=== PATIENT | male | born 1945 | race Caucasian/White ===

== ENCOUNTER 2017-11-10 20:45 | Emergency (ER) | payer MEDICARE, BC ==
[~2017-11-10] VITALS: Ht 172.7 cm; Wt 75.8 kg
[2017-11-10] MEDS ORDERED: LIDOcaine 1.5% w/epinephrine 1:200,000 5ml ampul IJ ONE (21:45)
[2017-11-10 22:27] VITALS: BP 128/73
== END 2017-11-10 22:28 | disposition home or self-care (01) ==
LOC: ER 20:47
DX: S91.115A Laceration without foreign body of left lesser toe(s) without damage to nail, initial encounter (principal); I48.91 Unspecified atrial fibrillation; I10 Essential (primary) hypertension; G89.29 Other chronic pain; Z85.9 Personal history of malignant neoplasm, unspecified; W26.0XXA Contact with knife, initial encounter; Y93.89 Activity, other specified; Y92.89 Other specified places as the place of occurrence of the external cause; Y99.8 Other external cause status
CPT/HCPCS: 12001; 93005; 99284; A6222; J3490